=== PATIENT | female | born 1940 | race Caucasian/White ===

== ENCOUNTER 2016-06-09 07:00 | Day surgery (SDC) | payer MEDICARE, OTHER ==
[2016-06-08 12:30] LABS: Basophils # (auto) 0 uL; Basophils % (auto) 0.1 % (0.0-2.0); Eosinophils # (auto) 0.1 uL; Eosinophils % (auto) 1.2 % (0.0-7.0); Hematocrit 41.8 % (36.0-46.0); Hemoglobin 13.7 g/dL (12.2-16.2); Lymphocytes # (auto) 2.8 uL; Lymphocytes % (auto) 31.6 % (10.0-50.0); Mean Corpuscular Hgb Conc. 32.9 g/dL (32.0-36.0); Mean Corpuscular Volume 88.1 fL (80.0-100.0); Mean Platelet Volume 9.9 fL (7.4-10.4); Monocytes # (auto) 0.5 uL; Monocytes % (auto) 5.9 % (0.0-12.0); Neutrophils # (auto) 5.5 uL; Neutrophils % (auto) 61.2 % (37.0-80.0); Platelet Count (auto) 181 10^3/uL (140-450); Red Cell Distribution Width 14.6 % (11.6-16.0); White Blood Cell 8.9 10^3/uL (4.4-10.8)
[2016-06-08 12:45] LABS: INR 1.06 (0.9-1.15); Partial Thromboplastin Time 26.7 sec (22.64-33.71); Prothrombin Time 11.4 sec (9.37-12.3)
[2016-06-08 12:56] LABS: Albumin 3.4 g/dL (3.4-5.0); BUN/Creatinine Ratio 19.6; Bilirubin, Total 0.4 mg/dL (0.2-1.0); Calcium 9.8 mg/dL (8.5-10.1); Potassium 3.7 mmol/L (3.5-5.1); Total Protein 7.6 g/dL (6.4-8.2)
[~2016-06-09] VITALS: Ht 162.6 cm; Wt 92.5 kg
[~2016-06-09 07:00] MED LIST: ACAR100T2 PO; FLUT50SP13; GLIP-116 PO; LORA-622 PO; MULT-775 OR; OMEP20CA5 PO; TRIA37.575 PO
[2016-06-09] MEDS ORDERED: ceFAZolin 1GM/50ML D5W 50 ML IV ONE (07:23)
[2016-06-09] MEDS ORDERED: BUPIVACAINE 0.75% INJ 10ML MPV SDV IJ ONE (09:07)
[2016-06-09] MEDS ORDERED: ceFAZolin 1GM VL ONE (09:07)
[2016-06-09] MEDS ORDERED: DEXAMETHASONE SOD PHOS 10MG/1ML VIAL INJ IV ONE (09:37)
[2016-06-09] MEDS ORDERED: ONDANSETRON HCL 4 MG/2 ML VIAL IV ONE ×2 (09:37→10:45)
[2016-06-09] MEDS ORDERED: PROPOFOL 10 MG/ML 20 ML IV ONE (09:37)
[2016-06-09] MEDS ORDERED: GLYCOPYRROLATE 0.2 MG/ML 1ML VIAL IV ONE (09:37)
[2016-06-09] MEDS ORDERED: fentaNYL CITRATE 100 MCG/2 ML VL ONE (09:40)
[2016-06-09] MEDS ORDERED: BUPIVACAINE 0.75% INJ 30ML MPF VIAL IJ ONE (10:35)
[2016-06-09] MEDS ORDERED: HYDROmorphone HCL 2 MG/ML VL IV PRN (10:45)
[2016-06-09 11:55] VITALS: BP 158/84
== END 2016-06-09 12:00 | disposition home or self-care (01) ==
LOC: SUR 07:00
PROVIDERS: ATTEND Podiatrist Foot & Ankle Surgery
DX: X58.XXXA Exposure to other specified factors, initial encounter (principal); S93.131A Subluxation of interphalangeal joint of right great toe, initial encounter; Z90.710 Acquired absence of both cervix and uterus; E11.9 Type 2 diabetes mellitus without complications; E66.9 Obesity, unspecified; Y93.9 Activity, unspecified; Y92.9 Unspecified place or not applicable; Y99.9 Unspecified external cause status
CPT/HCPCS: 28755; 36415; 73660; 76000; 80053; 82962; 85025; 85610; 85730; 88304; 88311; C1713; C1887; J0690; J1100; J2405; J2704; J3010; J3490; L3260; Q4137

== ENCOUNTER 2016-10-04 09:31 | Inpatient (IN) | payer MEDICARE, OTHER ==
[~2016-10-04] VITALS: Ht 162.6 cm; Wt 97.9 kg
[~2016-10-04 09:31] MED LIST changes: -OMEP20CA5 PO; +OMEP20CA74 PO
[2016-10-04 10:35] LABS: Urine Bilirubin Negative (Negative); Urine Blood Negative /uL (Negative); Urine Color Yellow (Yellow); Urine Glucose Normal (Normal); Urine Ketone Negative (Negative); Urine Mucus FEW (None Seen); Urine Nitrite Negative (Negative); Urine RBC <1 /hpf (0 - 4); Urine Squamous Epithelial Cell FEW /hpf (<5); Urine Urobilinogen Normal (Negative); Urine pH 6.5 (5.0-8.0)
[2016-10-04 10:47] LABS: Basophils # (auto) 0 uL; Basophils % (auto) 0.2 % (0.0-2.0); CONDITION Y; Eosinophils # (auto) 0 uL; Eosinophils % (auto) 0.4 % (0.0-7.0); Hematocrit 41.5 % (36.0-46.0); Hemoglobin 14.2 g/dL (12.2-16.2); Lymphocytes # (auto) 2.5 uL; Lymphocytes % (auto) 27.9 % (10.0-50.0); Mean Corpuscular Hemoglobin 30.1 pg (28.0-32.0); Mean Corpuscular Hgb Conc. 34.3 g/dL (32.0-36.0); Mean Corpuscular Volume 87.9 fL (80.0-100.0); Monocytes # (auto) 0.6 uL; Monocytes % (auto) 6.7 % (0.0-12.0); Neutrophils # (auto) 5.7 uL; Neutrophils % (auto) 64.8 % (37.0-80.0); Platelet Count (auto) 200 10^3/uL (140-450); Red Cell Distribution Width 13.9 % (11.6-16.0); White Blood Cell 8.8 10^3/uL (4.4-10.8)
[2016-10-04 10:59] LABS: Albumin 3.3 g/dL (3.4-5.0); BUN/Creatinine Ratio 17.5; Calcium 9.1 mg/dL (8.5-10.1); Potassium 3.5 mmol/L (3.5-5.1)
[2016-10-04] MEDS ORDERED: KETOROLAC TROMETH 30 MG/ML 1ML VIAL IV ONE (11:00)
[2016-10-04] MEDS ORDERED: CLINDAMYCIN 600MG IV 50 ML IV ONE (11:00)
[2016-10-04] MEDS ORDERED: VANCOMYCIN 1GM/250ML D5W 250 ML IV ONE (11:00)
[2016-10-04 11:01] LABS: Bilirubin, Total 0.4 mg/dL (0.2-1.0); Total Protein 7.9 g/dL (6.4-8.2)
[2016-10-04 11:04] LABS: INR 1.03 (0.9-1.15); Partial Thromboplastin Time 23.3 sec (22.64-33.71); Prothrombin Time 11.2 sec (9.37-12.3)
[2016-10-04] MEDS ORDERED: DEXTROSE (50%) 50ML SYRG IV PRN (11:45)
[2016-10-04] MEDS ORDERED: VANCOMYCIN PER PHARMACY 0 MG IV SCH (11:45)
[2016-10-04] MEDS ORDERED: PIPERACILLIN-TAZOB 3.375GM 100 ML IV SCH (12:00)
[2016-10-04] MEDS ORDERED: MORPHINE SULF INJ 2 MG/ML SYRINGE 1ML IV PRN ×2 (12:00)
[2016-10-04] MEDS ORDERED: TRIAMTERENE/HCTZ 75/50MG TABLET PO ONE (12:15)
[2016-10-04] MEDS: PANTOPRAZOLE 40 MG TAB PO SCH (12:30)
[2016-10-04] MEDS ORDERED: CLINDAMYCIN 600MG IV 50 ML IV SCH (14:00)
[2016-10-04] MEDS: SODIUM CHLORIDE 0.9% 1,000 ML IV SCH (14:00)
[2016-10-04 17:04] VITALS: BP 119/68
[2016-10-04] MEDS: ACCU-CHEK COMFORT CURVE STRIP VI SCH ×2 (17:32→22:27)
[2016-10-04] MEDS: InsuLIN REG 1unit/0.01ml Soln (100units/ml) SC SCH ×2 (17:33→22:27)
[2016-10-04] MEDS: traMADol HCL 50 MG TAB PO PRN (17:33)
[2016-10-04] MEDS: PIPERACILLIN-TAZOB 3.375GM 100 ML IV SCH (18:07)
[2016-10-05] MEDS ORDERED: VANCOMYCIN 750 MG in D5W 5% 250 ML IV SCH ×2
[2016-10-05] MEDS: PIPERACILLIN-TAZOB 3.375GM 100 ML IV SCH ×4 (00:23→21:20)
[2016-10-05] MEDS: SODIUM CHLORIDE 0.9% 1,000 ML IV SCH ×2 (05:02→11:43)
[2016-10-05] MEDS: InsuLIN REG 1unit/0.01ml Soln (100units/ml) SC SCH ×4 (05:02→22:00)
[2016-10-05] MEDS: ACCU-CHEK COMFORT CURVE STRIP VI SCH ×4 (05:03→22:00)
[2016-10-05 05:54] VITALS: BP 112/62
[2016-10-05 06:13] LABS: BUN/Creatinine Ratio 17.8; Calcium 8.7 mg/dL (8.5-10.1); Potassium 3.9 mmol/L (3.5-5.1)
[2016-10-05 08:00] VITALS: BP 126/70
[2016-10-05] MEDS: PANTOPRAZOLE 40 MG TAB PO SCH (09:43)
[2016-10-05] MEDS ORDERED: TRIAMTERENE/HCTZ 75/50MG TABLET PO SCH (10:00)
[2016-10-05 12:00] VITALS: BP 114/65
[2016-10-05 17:00] VITALS: BP 129/66
[2016-10-05] MEDS ORDERED: LIDOCAINE 1% HCL (LOCAL ANESTH.) INJ 20ML MDV ID ONE (19:45)
[2016-10-05 21:59] VITALS: BP 108/62
[2016-10-05] MEDS: SODIUM CHLOR 0.9% PF (SALINE LOCK) 10ML VIAL IV SCH (22:00)
[2016-10-06] MEDS: SODIUM CHLORIDE 0.9% 1,000 ML IV SCH ×2 (01:03→16:09)
[2016-10-06 05:03] VITALS: BP 119/59
[2016-10-06] MEDS: PIPERACILLIN-TAZOB 3.375GM 100 ML IV SCH ×3 (05:56→22:32)
[2016-10-06] MEDS: InsuLIN REG 1unit/0.01ml Soln (100units/ml) SC SCH ×4 (05:57→21:44)
[2016-10-06] MEDS: ACCU-CHEK COMFORT CURVE STRIP VI SCH ×4 (06:02→21:43)
[2016-10-06 06:49] LABS: BUN/Creatinine Ratio 21.4; Calcium 9.7 mg/dL (8.5-10.1)
[2016-10-06] MEDS: SODIUM CHLOR 0.9% PF (SALINE LOCK) 10ML VIAL IV SCH ×2 (09:23→21:52)
[2016-10-06] MEDS: PANTOPRAZOLE 40 MG TAB PO SCH (09:23)
[2016-10-06 09:32] VITALS: BP 143/76
[2016-10-06] MEDS ORDERED: VANCOMYCIN 1GM/250ML D5W 250 ML IV SCH (10:00)
[2016-10-06 13:00] VITALS: BP 136/76
[2016-10-06] MEDS ORDERED: ONDANSETRON HCL 4 MG/2 ML VIAL ONE (13:07)
[2016-10-06] MEDS ORDERED: PROPOFOL 10 MG/ML 20 ML IV ONE (13:07)
[2016-10-06] MEDS ORDERED: SODIUM CHLORIDE LOCK 20 ML ONE (13:07)
[2016-10-06] MEDS ORDERED: fentaNYL CITRATE 100 MCG/2 ML VL ONE (13:07)
[2016-10-06] MEDS ORDERED: ceFAZolin 1GM/50ML D5W 50 ML IV ONE (13:35)
[2016-10-06] MEDS ORDERED: ceFAZolin 1GM VL ONE (13:37)
[2016-10-06] MEDS ORDERED: BUPIVACAINE 0.75% INJ 10ML MPV SDV IJ ONE ×2 (13:37→14:24)
[2016-10-06] MEDS ORDERED: HYDROmorphone HCL 2 MG/ML VL IV PRN (13:45)
[2016-10-06] MEDS ORDERED: METOCLOPRAMIDE HCL 5MG/ml INJ 2ml VIAL IV ONE (13:45)
[2016-10-06 17:50] VITALS: BP 151/77
[2016-10-06] MEDS: traMADol HCL 50 MG TAB PO PRN (21:27)
[2016-10-06 22:00] VITALS: BP 116/67
[2016-10-07 04:44] VITALS: BP 142/86
[2016-10-07] MEDS: SODIUM CHLORIDE 0.9% 1,000 ML IV SCH (05:41)
[2016-10-07] MEDS: PIPERACILLIN-TAZOB 3.375GM 100 ML IV SCH ×3 (05:50→21:33)
[2016-10-07 06:37] LABS: Basophils # (auto) 0 uL; CONDITION Y; Eosinophils # (auto) 0 uL; Hematocrit 39.9 % (36.0-46.0); Hemoglobin 13.3 g/dL (12.2-16.2); Lymphocytes % (auto) 11.9 % (10.0-50.0); Mean Corpuscular Hemoglobin 29.5 pg (28.0-32.0); Mean Corpuscular Hgb Conc. 33.3 g/dL (32.0-36.0); Mean Corpuscular Volume 88.5 fL (80.0-100.0); Mean Platelet Volume 8.9 fL (7.4-10.4); Monocytes # (auto) 0.3 uL; Monocytes % (auto) 3.3 % (0.0-12.0); Neutrophils # (auto) 7.3 uL; Neutrophils % (auto) 84.8 % (37.0-80.0); Platelet Count (auto) 202 10^3/uL (140-450); Red Cell Distribution Width 13.7 % (11.6-16.0); White Blood Cell 8.6 10^3/uL (4.4-10.8)
[2016-10-07] MEDS: ACCU-CHEK COMFORT CURVE STRIP VI SCH ×4 (06:46→21:46)
[2016-10-07] MEDS: InsuLIN REG 1unit/0.01ml Soln (100units/ml) SC SCH ×4 (06:47→21:46)
[2016-10-07 07:00] LABS: BUN/Creatinine Ratio 16.5; Calcium 9.1 mg/dL (8.5-10.1); Potassium 3.9 mmol/L (3.5-5.1)
[2016-10-07 09:00] VITALS: BP 134/83
[2016-10-07] MEDS: PANTOPRAZOLE 40 MG TAB PO SCH (09:24)
[2016-10-07] MEDS: SODIUM CHLOR 0.9% PF (SALINE LOCK) 10ML VIAL IV SCH ×2 (09:24→21:33)
[2016-10-07] MEDS ORDERED: glipiZIDE 5 MG TAB PO ONE (10:15)
[2016-10-07 13:00] VITALS: BP 140/80
[2016-10-07] MEDS ORDERED: ASCORBIC ACID 500 MG TAB PO ONE (14:45)
[2016-10-07] MEDS ORDERED: MULTIPLE VITAMINS W/ MINERALS TAB PO ONE (14:45)
[2016-10-07 16:44] VITALS: BP 104/61
[2016-10-07] MEDS: glipiZIDE 5 MG TAB PO SCH (18:14)
[2016-10-07] MEDS: traMADol HCL 50 MG TAB PO PRN (20:01)
[2016-10-07] MEDS: ASCORBIC ACID 500 MG TAB PO SCH (21:33)
[2016-10-07 22:00] VITALS: BP 123/72
[2016-10-08] MEDS: traMADol HCL 50 MG TAB PO PRN (03:50)
[2016-10-08 05:00] VITALS: BP 137/78
[2016-10-08] MEDS: PIPERACILLIN-TAZOB 3.375GM 100 ML IV SCH ×2 (05:40→14:00)
[2016-10-08] MEDS: glipiZIDE 5 MG TAB PO SCH (06:38)
[2016-10-08] MEDS: InsuLIN REG 1unit/0.01ml Soln (100units/ml) SC SCH ×2 (06:38→12:30)
[2016-10-08] MEDS: ACCU-CHEK COMFORT CURVE STRIP VI SCH ×2 (06:38→12:30)
[2016-10-08 09:00] VITALS: BP 128/79
[2016-10-08] MEDS ORDERED: MULTIPLE VITAMINS W/ MINERALS TAB PO SCH (10:00)
[2016-10-08] MEDS: PANTOPRAZOLE 40 MG TAB PO SCH (10:08)
[2016-10-08] MEDS: SODIUM CHLOR 0.9% PF (SALINE LOCK) 10ML VIAL IV SCH (10:08)
[2016-10-08] MEDS: ASCORBIC ACID 500 MG TAB PO SCH (10:08)
[2016-10-08 13:00] VITALS: BP 124/74
[2016-10-08] MEDS ORDERED: cefTRIAXone 1GM/50ML D5W 50 ML IV ONE ×2 (14:15)
== END 2016-10-08 16:50 | disposition home or self-care (01) | DRG 617 ==
LOC: ER 09:31 → OVERFLOW 09:32 → EAST 12:39
PROVIDERS: ADMIT Nurse Practitioner Family; ATTEND Internal Medicine
PROC: 02HV33Z Insertion of Infusion Device into Superior Vena Cava, Percutaneous Approach (ICD-10-PCS; 2016-10-05)
PROC: 0Y6R0Z3 Detachment at Right 2nd Toe, Low, Open Approach (ICD-10-PCS; principal; 2016-10-06 14:24)
DX: E11.69 Type 2 diabetes mellitus with other specified complication (principal); M86.8X7 Other osteomyelitis, ankle and foot; E11.22 Type 2 diabetes mellitus with diabetic chronic kidney disease; N18.3 Chronic kidney disease, stage 3 (moderate); K21.9 Gastro-esophageal reflux disease without esophagitis; L03.031 Cellulitis of right toe; I12.9 Hypertensive chronic kidney disease with stage 1 through stage 4 chronic kidney disease, or unspecified chronic kidney disease; E66.9 Obesity, unspecified; Z79.84 Long term (current) use of oral hypoglycemic drugs; Z79.899 Other long term (current) drug therapy; Z83.3 Family history of diabetes mellitus; Z68.37 Body mass index [BMI] 37.0-37.9, adult; Z88.6 Allergy status to analgesic agent; Z88.8 Allergy status to other drugs, medicaments and biological substances; Z90.710 Acquired absence of both cervix and uterus
CPT/HCPCS: 36415; 36569; 71010; 73660; 80048; 80053; 81001; 82962; 83036; 85025; 85610; 85730; 86850; 86900; 86901; 87040; 93005; 93923; 96374; 96375; J0690; J0696; J1815; J1885; J2405; J2543; J2704; J3490; J7060

== ENCOUNTER 2016-12-20 09:27 | Emergency (ER) | payer MEDICARE, OTHER ==
[~2016-12-20] VITALS: Ht 162.6 cm; Wt 90.3 kg
[2016-12-20 10:44] VITALS: BP 144/95
[2016-12-20 11:16] LABS: Basophils # (auto) 0.1 uL; Basophils % (auto) 1.1 % (0.0-2.0); Eosinophils # (auto) 0.1 uL; Eosinophils % (auto) 0.8 % (0.0-7.0); Hematocrit 41.7 % (36.0-46.0); Hemoglobin 13.9 g/dL (12.2-16.2); Lymphocytes # (auto) 2.9 uL; Lymphocytes % (auto) 40.5 % (10.0-50.0); Mean Corpuscular Hemoglobin 29.6 pg (28.0-32.0); Mean Corpuscular Hgb Conc. 33.3 g/dL (32.0-36.0); Mean Corpuscular Volume 88.8 fL (80.0-100.0); Mean Platelet Volume 8.7 fL (6.9-10.8); Monocytes # (auto) 0.5 uL; Monocytes % (auto) 7.1 % (0.0-12.0); Neutrophils # (auto) 3.6 uL; Neutrophils % (auto) 50.5 % (37.0-80.0); Nucleated Red Blood Cells % 0.1 %; Platelet Count (auto) 183 10^3/uL (140-450); Red Cell Distribution Width 14.2 % (11.8-14.3); White Blood Cell 7.1 10^3/uL (4.4-10.8)
[2016-12-20 11:33] LABS: Albumin 3.5 g/dL (3.4-5.0); Bilirubin, Total 0.5 mg/dL (0.2-1.0); Calcium 9.6 mg/dL (8.5-10.1); Potassium 3.5 mmol/L (3.5-5.1); Total Protein 7.7 g/dL (6.4-8.2)
== END 2016-12-20 13:34 | disposition home or self-care (01) ==
LOC: ER 09:27
DX: E11.69 Type 2 diabetes mellitus with other specified complication (principal); M86.9 Osteomyelitis, unspecified; K21.9 Gastro-esophageal reflux disease without esophagitis; I10 Essential (primary) hypertension; Z88.6 Allergy status to analgesic agent; Z88.8 Allergy status to other drugs, medicaments and biological substances; Z90.710 Acquired absence of both cervix and uterus
CPT/HCPCS: 36415; 73700; 80053; 85025; 87040

== ENCOUNTER → 2018-05-29 | Day surgery (SDC) | payer MEDICARE, OTHER ==
[2018-05-25 12:34] LABS: Urine Bacteria NONE SEEN /hpf (None Seen); Urine Blood Negative /uL (Negative); Urine Specific Gravity 1.016 (1.001-1.035); Urine WBC <1 /hpf (0 - 5)
[2018-05-25 12:38] LABS: Basophils # (auto) 0.1 uL; Basophils % (auto) 0.9 % (0.0-2.0); Eosinophils # (auto) 0.1 uL; Eosinophils % (auto) 1.1 % (0.0-7.0); Hematocrit 43.3 % (36.0-46.0); Hemoglobin 14.2 g/dL (12.2-16.2); Lymphocytes # (auto) 2.5 uL; Mean Corpuscular Hemoglobin 29.5 pg (28.0-32.0); Mean Corpuscular Hgb Conc. 32.9 g/dL (32.0-36.0); Mean Corpuscular Volume 89.9 fL (80.0-100.0); Monocytes # (auto) 0.5 uL; Monocytes % (auto) 6.5 % (0.0-12.0); Neutrophils # (auto) 4.3 uL; Neutrophils % (auto) 58.5 % (37.0-80.0); Nucleated Red Blood Cells % 0.1 %; Platelet Count (auto) 172 10^3/uL (140-450); Red Blood Cells 4.82 10^6/uL (4.0-5.20); Red Cell Distribution Width 14.4 % (11.8-14.3); White Blood Cell 7.4 10^3/uL (4.4-10.8)
[2018-05-25 12:50] LABS: Partial Thromboplastin Time 26.8 sec (23.78-33.04); Prothrombin Time 10.7 sec (9.27-12.13)
[2018-05-25 13:06] LABS: Potassium 3.6 mmol/L (3.5-5.1)
[2018-05-25 13:10] LABS: Albumin 3.6 g/dL (3.4-5.0); Calcium 9.6 mg/dL (8.5-10.1)
[2018-05-25 13:16] LABS: BUN/Creatinine Ratio 19.3; Bilirubin, Total 0.6 mg/dL (0.2-1.0); Total Protein 7.6 g/dL (6.4-8.2)
[~2018-05-29] VITALS: Ht 162.6 cm; Wt 92.5 kg
[~2018-05-29] MED LIST changes: -ACAR100T2 PO; +ACCU-CHEK COMFORT CURVE STRIP VI ONE; +BUPIVACAINE 0.25% INJ 50ML VIAL ONE; +CHOL50007 PO; +DexAMETHasone SOD PHOS 10MG/1ML VIAL INJ ONE; +ETOMIDATE (2MG/ML) 20ML VIAL IV ONE; -FLUT50SP13; -GLIP-116 PO; +INSU70IN3 SC; +KETOROLAC TROMETH 30 MG/ML 1ML VIAL IV ONE; +LABETALOL HCL 5 MG/ML 4ML SYRINGE IV PRN; -LORA-622 PO; +MEPERIDINE HCL (50 MG/ML) 1 ML VIAL ONE; +MIDAZOLAM HCL 1MG/1ML-2 ML VIAL IV PRN; +MIDAZOLAM HCL 1MG/1ML-2 ML VIAL ONE; +MORPHINE SULFATE 4 MG/ML SYR/VIAL IV ONE; +MORPHINE SULFATE 4 MG/ML SYR/VIAL IV PRN; -MULT-775 OR; +ONDANSETRON HCL 4 MG/2 ML VIAL IV ONE; +PROPOFOL 10 MG/ML 20 ML IV ONE; +SIME80CH6 PO; +SUCCINYLCHOLINE CHLORIDE 20 MG/ML 10ML VIAL IV ONE; +TRIA37.55 PO; -TRIA37.575 PO; +ceFAZolin 1GM/50ML 50 ML IV ONE; +ePHEDrine SULFATE 50 MG/ML AMP IV PRN; +fentaNYL CITRATE 100 MCG/2 ML VL ONE
[2018-05-29 11:09] VITALS: BP 142/89
== END | disposition home or self-care (01) ==
LOC: SUR 05:59
PROVIDERS: ATTEND Orthopaedic Surgery
DX: S92.35 Fracture of fifth metatarsal bone (principal); M20.21 Hallux rigidus, right foot; M20.41 Other hammer toe(s) (acquired), right foot; I10 Essential (primary) hypertension; K21.9 Gastro-esophageal reflux disease without esophagitis; E11.42 Type 2 diabetes mellitus with diabetic polyneuropathy; E66.9 Obesity, unspecified; Z68.35 Body mass index [BMI] 35.0-35.9, adult; Z79.84 Long term (current) use of oral hypoglycemic drugs; Z88.8 Allergy status to other drugs, medicaments and biological substances; Z90.710 Acquired absence of both cervix and uterus; Z98.890 Other specified postprocedural states; Z82.49 Family history of ischemic heart disease and other diseases of the circulatory system; Z83.3 Family history of diabetes mellitus; Z80.9 Family history of malignant neoplasm, unspecified; X58.XXXD Exposure to other specified factors, subsequent encounter
CPT/HCPCS: 28160; 28285; 28308; 36415; 73620; 76000; 80053; 81001; 82962; 83036; 85025; 85610; 85730; C1713; C1776; J0330; J0690; J1100; J2175; J2250; J2704; J3010; J3490